=== PATIENT | female | born 1990 | race African-American/Black ===

== ENCOUNTER 2016-06-10 10:25 | Inpatient (IN) | payer OTHER ==
[2016-06-10] MEDS ORDERED: ceFAZolin SODIUM 2 GM in DEXTROSE 5 % IN WATER 50 ML IV PRN ×2 (10:42)
[2016-06-10] MEDS ORDERED: OXYTOCIN 20 UNITS in RINGERS SOLUTION,LACTATED 1,000 ML IV ONE (10:42)
[2016-06-10] MEDS ORDERED: RINGERS SOLUTION,LACTATED 1,000 ML IV PRN ×2 (10:42)
[2016-06-10 12:18] LABS: Cocaine Ur Negative (NEGATIVE); Urine Barbiturate Negative (NEGATIVE); Urine Benzodiazepines Negative (NEGATIVE); Urine Opiates Negative (NEGATIVE); Urine PCP Negative (NEGATIVE)
[2016-06-10 12:21] LABS: Urine THC Positive (NEGATIVE)
--- NOTE | 2016-06-10 12:52 | PN ---
Progess Note - Interim Narrative: 06/10/16 12:47 Subjective-starting to feel some contractions, continues to leak fluid Objective- SVE- fingertip and very high FHTs- 140s, moderate variability, positive accelerations no decelerations Hallam- irregular Bedside ultrasound: Breech Assessment and plan- Labor-spontaneous with rupture of membranes and breech presentation. We discussed options of external cephalic version versus primary , risks and benefits of each and expectations and due to her G1 status, rupture of membranes, persistent breech and term , she is favoring a primary CD. Pt is consented and staff notified heart tones-Category 1 GBS status- negative Continue current plan of care.
[2016-06-10] MEDS ORDERED: RINGERS SOLUTION,LACTATED 1,000 ML IV ONE ×3 (13:20→14:40)
[2016-06-10] MEDS ORDERED: BISACODYL 10 MG SUPP.RECT RC PRN (14:42)
[2016-06-10] MEDS ORDERED: SENNOSIDES 8.6 MG TABLET PO PRN (14:42)
[2016-06-10] MEDS ORDERED: SIMETHICONE 80 MG TAB.CHEW PO PRN (14:42)
[2016-06-10] MEDS ORDERED: KETOROLAC TROMETHAMINE 30 MG/ML VIAL IV PRN (14:42)
[2016-06-10] MEDS ORDERED: oxyCODONE HCL/ACETAMINOPHEN 1 TAB TABLET PO PRN (14:42)
[2016-06-10] MEDS ORDERED: ONDANSETRON HCL/PF 2 MG/ML VIAL IV PRN (14:42)
--- NOTE | 2016-06-10 14:52 | OR ---
Operative Report - Dictated Report Narrative: Operative report: 06/10/2016 Preoperative diagnosis: 37.4 weeks, premature rupture of membranes, early labor , breech presentation, obesity, tobacco and marijuana abuse, anxiety and depression Postoperative diagnosis: Same Procedure: Primary low-transverse section Surgeon: Comfort Cobb D.O. Subway Train Operator: Or staff Anesthesia: Spinal IV fluids: 1100 Milliliters Urine output: 200 Milliliters EBL: 300 Milliliters Findings: Mickey breech presentation, normal-appearing uterus, tubes, and ovaries Drains: Brady catheter to gravity Pathology: None Complications: None Condition: Stable The patient was taken to the operating room with IV fluids running and Brady catheter in place. She was placed in the dorsal supine position with a leftward tilt. She was prepped and draped in the normal sterile fashion. A Pfannenstiel skin incision was made with the scalpel 2 cm above the pubic symphysis. The subcutaneous tissue was dissected down to the fascia. The fascia was incised in the midline and extended laterally. The superior aspect of the fascia was grasped with Stephy clamps and the rectus muscles were dissected off the fascia using Veloz scissors and blunt dissection. In a similar fashion, the inferior aspect of the fascia was grasped and the rectus muscles dissected off. The peritoneum was then entered and extended with good visualization of the bowel and bladder. The uterine incision was made in a low-transverse fashion using the scalpel. The lower uterine segment was extremely thin and opened with one gentle with the scalpel. A small scratch on the epidermis of the baby's right buttox was noted. No bleeding was noted at the site at the time or 1 hour later. It was extended laterally in a blunt manner and extended bandage scissors. The was found to be mickey breech, the buttocks was delivered through the incision and the left leg was delivered through the incision by applying gentle pressure behind the knee and rotating laterally. This was repeated on the right side. The baby was then covered with a warm towel and brought down to the scapula. The left arm was delivered by sweeping the arm over the chest the baby was then rotated and the right arm was delivered in the same fashion a loose nuchal cord was noted and reduced over the head and the head was flexed and delivered spontaneously and easily. The infant was then delivered atraumatically. The cord was clamped and cut. The infant was handed off to the waiting straight tooth gear generator operator. Cord blood was then collected. The placenta was then delivered spontaneously. The uterus was cleared of all clots and debris. Uterine incision was reapproximated using 0 Vicryl in a running locked fashion. A second layer of 0 Vicryl was used to imbricate the uterine incision. Hemostasis was obtained. The peritoneum was then reapproximated using 3-0 Monocryl. The rectus muscles were inspected, cautery was used to obtain hemostasis. The fascia was then reapproximated with 0 Vicryl. The subcutaneous tissue was then irrigated. Bovie cautery was used to obtain hemostasis. The subcutaneous tissue was then reapproximated using 3-0 Monocryl. The skin was closed in a subcuticular fashion using 4-0 Monocryl. The incision was found to be hemostatic. Benzoin and Steri-Strips were then applied. Telfa and ABDs bandage was then placed. The patient tolerated the procedure well. Sponge, lap, needle, and instrument counts were correct throughout the entire procedure. The patient was taken to the recovery room in stable condition. History for MU Definition: * The number of deliveries resulting in a live the patient experienced prior to current hospitalization * The previous delivery of live twins or any live multiple gestation is considered one live event. *If primagravida or nulliparous is documented select zero for the number of previous live births. Live Events: 0
[2016-06-10] MEDS ORDERED: NALOXONE HCL 1 MG/1 ML SYRG IV PRN ×2 (15:00)
[2016-06-10] MEDS ORDERED: diphenhydrAMINE HCL 50 MG/ML VIAL IV PRN (15:00)
[2016-06-10] MEDS: ENOXAPARIN SODIUM 40 MG/0.4 ML SYRG SC SCH (20:49)
[2016-06-10] MEDS: DOCUSATE SODIUM 100 MG CAPSULE PO SCH (20:49)
[2016-06-10] MEDS: IBUPROFEN 800 MG TABLET PO PRN (22:07)
[2016-06-10] MEDS: oxyCODONE HCL/ACETAMINOPHEN 1 TAB TABLET PO PRN (22:08)
[2016-06-11] MEDS: IBUPROFEN 800 MG TABLET PO PRN ×3 (07:59→23:14)
[2016-06-11] MEDS: DOCUSATE SODIUM 100 MG CAPSULE PO SCH ×2 (07:59→22:29)
[2016-06-11] MEDS: oxyCODONE HCL/ACETAMINOPHEN 1 TAB TABLET PO PRN ×5 (07:59→23:15)
--- NOTE | 2016-06-11 08:57 | PN ---
Progess Note - Interim Narrative: 06/11/16 08:54 Subjective: Patient is doing well, ambulating, voiding, tolerating by mouth. Minimal lochia. Pain controlled with medication. Objective: Vital signs stable General: no acute distress Abdomen: Soft, nondistended, diffusely tender, fundus firm Skin: Incision is clean, dry and intact Extremities: Minimal edema, nontender Assessment and plan: Postoperative day 1 Feeding: bottle Pain: Controlled with by mouth medication Routine postoperative care.
--- NOTE | 2016-06-11 10:51 | PN ---
Subjective - Date and Time Seen Date: 06/11/16 Time: 10:30 Subjective Narrative: Denies complications related to Duramorph spinal and bilateral ultrasound- guided tap blocks. Pain appears to be well-controlled. Objective - Review of Systems Generalized/Overall Review: Reports: No Symptoms Reported - Vitals Vitals: Last Vital Signs Temp 37.0 C 06/11/16 04:55 Pulse 72 06/11/16 04:55 Resp 16 06/11/16 04:55 BP 122/68 06/11/16 04:55 Pulse Ox 98 06/11/16 04:55 - Abnormal Lab Findings Abnormal Lab Findings: Abnormal Lab Results 06/10/16 Range/Units 10:30 Urine Marijuana (THC) Positive H (NEGATIVE) - Exam Constitutional: Present: Alert, Oriented x3, Cooperative, No distress Extremity: Present: normal range of motion Skin Exam: Present: normal color, warm/dry Cauti Physician Documentation - Urinary Catheter Management Urethral (Brady) Date of Insertion: 06/09/16 Time of Insertion: 13:35 Assessment/Plan Plan Narrative: Continue current pain medications as prescribed.
[2016-06-11] MEDS: ENOXAPARIN SODIUM 40 MG/0.4 ML SYRG SC SCH (22:29)
[2016-06-12] MEDS: oxyCODONE HCL/ACETAMINOPHEN 1 TAB TABLET PO PRN ×3 (06:54→20:47)
[2016-06-12] MEDS: IBUPROFEN 800 MG TABLET PO PRN ×2 (06:55→16:56)
[2016-06-12] MEDS: NICOTINE 21 MG PATC TD SCH ×2 (08:14→16:06)
[2016-06-12] MEDS: DOCUSATE SODIUM 100 MG CAPSULE PO SCH ×2 (09:36→20:40)
--- NOTE | 2016-06-12 10:06 | PN ---
Progess Note - Interim Narrative: 06/12/16 10:03 Subjective: Patient is doing well, ambulating, voiding, tolerating by mouth. Minimal lochia. Pain controlled with medication. Objective: Vital signs stable General: no acute distress Abdomen: Soft, nondistended, diffusely tender, fundus firm Skin: Incision is clean, dry and intact Extremities: Minimal edema, nontender Assessment and plan: Postoperative day 2 Feeding: Bottle Pain: Controlled with by mouth medication Routine postoperative care.
[2016-06-12] MEDS: ENOXAPARIN SODIUM 40 MG/0.4 ML SYRG SC SCH (20:41)
[2016-06-13] MEDS: IBUPROFEN 800 MG TABLET PO PRN ×2 (01:52→07:35)
[2016-06-13] MEDS: oxyCODONE HCL/ACETAMINOPHEN 1 TAB TABLET PO PRN ×2 (01:53→07:35)
[2016-06-13 08:09] VITALS: BP 135/82
--- NOTE | 2016-06-13 08:50 | PN ---
Progess Note - Interim Narrative: 06/13/16 08:49 Subjective: Patient is doing well, ambulating, voiding, tolerating by mouth. Minimal lochia. Pain controlled with medication. Objective: Vital signs stable General: no acute distress Abdomen: Soft, nondistended, diffusely tender, fundus firm Skin: Incision is clean, dry and intact Extremities: Minimal edema, nontender Assessment and plan: Postoperative day 3 Feeding: Bottle Pain: Controlled with by mouth medication control: Condoms Routine postoperative care.
[2016-06-13] MEDS: DOCUSATE SODIUM 100 MG CAPSULE PO SCH (14:46)
[2016-06-13] MEDS: NICOTINE 21 MG PATC TD SCH (14:46)
== END 2016-06-13 16:15 | disposition home or self-care (01) | DRG 765 ==
LOC: OB 10:25 → MS 14:34
PROVIDERS: ADMIT Obstetrics & Gynecology Gynecologic Oncology; ATTEND Obstetrics & Gynecology Gynecologic Oncology
PROC: 4A1HXCZ Monitoring of Products of Conception, Cardiac Rate, External Approach (ICD-10-PCS; 2016-06-10)
PROC: 10D00Z1 Extraction of Products of Conception, Low, Open Approach (ICD-10-PCS; principal; 2016-06-10 13:00)
DX: O32.1XX0 Maternal care for breech presentation, not applicable or unspecified (principal); O99.324 Drug use complicating childbirth; O99.334 Smoking (tobacco) complicating childbirth; F12.10 Cannabis abuse, uncomplicated; F32.9 Major depressive disorder, single episode, unspecified; F41.9 Anxiety disorder, unspecified; Z3A.37 37 weeks gestation of pregnancy; Z37.0 Single live birth
CPT/HCPCS: 59025; 59510; G0479